=== PATIENT | male | born 1960 | race Two or more races ===

== ENCOUNTER 2020-08-27 22:25 | Emergency (ER) | payer MEDICAID, OTHER ==
[~2020-08-27] VITALS: Ht 170.2 cm; Wt 115.7 kg
[2020-08-27 23:47] VITALS: BP 162/77
== END 2020-08-28 00:18 | disposition home or self-care (01) ==
LOC: ER 22:27
DX: I16.0 Hypertensive urgency (principal); I10 Essential (primary) hypertension; E11.9 Type 2 diabetes mellitus without complications; F17.210 Nicotine dependence, cigarettes, uncomplicated
CPT/HCPCS: 93005

== ENCOUNTER 2020-12-12 21:49 | Inpatient (IN) | payer MEDICAID ==
[~2020-12-12] VITALS: Ht 172.7 cm; Wt 122.8 kg
[2020-12-12 22:47] LABS: Alanine Aminotransferase 31 U/L (16-61); Albumin 3.3 g/dL (3.4-5.0); Anion Gap 6 (5-15); Aspartate Aminotransferase 24 U/L (15-37); Blood Urea Nitrogen 12 mg/dL (7-18); Calcium 8.8 mg/dL (8.5-10.1); Carbon Dioxide 24 mmol/L (21-32); Chloride 110 mmol/L (98-107); GFR African American 98 mL/min; GFR Non-African American 81 mL/min; Glucose 265 mg/dL (74-106); Potassium 3.9 mmol/L (3.5-5.1); Sodium 140 mmol/L (136-145)
[2020-12-12 22:52] LABS: Alkaline Phosphatase 197 U/L (45-117); Bilirubin, Total 0.8 mg/dL (0.2-1.0); Total Protein 7.4 g/dL (6.4-8.2)
[2020-12-12 23:07] LABS: Basophils # (auto) 0 10 ^3/uL (0-0.2); Basophils % (auto) 0.3 % (0.0-2.0); Eosinophils # (auto) 0.1 10 ^3/uL (0-0.8); Eosinophils % (auto) 1.8 % (0.0-7.0); Hematocrit 41.5 % (41.0-53.0); Hemoglobin 15.1 g/dL (13.5-17.5); Lymphocytes # (auto) 2.6 10 ^3/uL (0.4-5.4); Lymphocytes % (auto) 37.2 % (10.0-50.0); Mean Corpuscular Hemoglobin 35.1 pg (28.0-32.0); Mean Corpuscular Hgb Conc. 36.4 g/dL (32.0-36.0); Mean Corpuscular Volume 96.6 fL (80.0-100.0); Monocytes # (auto) 0.7 10 ^3/uL (0-1.3); Monocytes % (auto) 9.7 % (0.0-12.0); Neutrophils # (auto) 3.6 10 ^3/uL (1.6-8.6); Nucleated Red Blood Cells % 0.2 %; Platelet Count (auto) 59 10^3/uL (140-450); Red Cell Distribution Width 13.3 % (11.8-14.3)
[2020-12-13] MEDS ORDERED: HYDROcodone-ACET 5/325MG TAB PO PRN (03:45)
[2020-12-13] MEDS ORDERED: MORPHINE SULF INJ 2 MG/ML SYRINGE 1ML IV PRN ×2 (03:45)
[2020-12-13] MEDS ORDERED: NITROGLYCERIN 0.4 MG SL TAB SL PRN (03:45)
[2020-12-13] MEDS ORDERED: ACETAMINOPHEN 325 MG TAB PO PRN (03:45)
[2020-12-13] MEDS ORDERED: hydrALAZINE HCL 20 MG/ML VL IV PRN (09:45)
[2020-12-13] MEDS: LISINOPRIL 10 MG TAB PO SCH ×2 (10:00→22:29)
[2020-12-13] MEDS ORDERED: cloNIDine HCL 0.1 MG TAB PO PRN (12:00)
[2020-12-13] MEDS ORDERED: ONDANSETRON HCL 4 MG/2 ML VIAL IV PRN (12:00)
[2020-12-13 13:37] LABS: Cholesterol 123 mg/dL (< 200); HDL Cholesterol 38 mg/dL (40-59); LDL Cholesterol 75 mg/dL (< 100); Triglycerides 88 mg/dL (< 150)
[2020-12-13] MEDS: FAMOTIDINE 20 MG TAB PO SCH (22:28)
[2020-12-13] MEDS: HCTZ 25 MG TAB PO SCH (22:28)
[2020-12-13 23:44] VITALS: BP 157/73
[2020-12-14] MEDS ORDERED: NIFE10CA3 PO (00:25)
[2020-12-14] MEDS ORDERED: INSLISPI SC (00:26)
[2020-12-14] MEDS ORDERED: ENAL2.5T7 PO (00:27)
[2020-12-14 05:00] VITALS: BP 134/55
[2020-12-14 08:45] VITALS: BP 148/71
[2020-12-14] MEDS: HCTZ 25 MG TAB PO SCH (08:58)
[2020-12-14] MEDS: FAMOTIDINE 20 MG TAB PO SCH (08:58)
[2020-12-14] MEDS: LISINOPRIL 10 MG TAB PO SCH (08:58)
[2020-12-14] MEDS ORDERED: LISI-716 PO (10:03)
[2020-12-14] MEDS ORDERED: HYDR25TA5 PO (10:03)
[2020-12-14 12:37] VITALS: BP 138/72
[2020-12-14 13:43] VITALS: BP 138/72
== END 2020-12-14 15:00 | disposition home or self-care (01) | DRG 201 ==
LOC: ER 21:50 → TELE 12-13 08:54 → TELE-WESTW 12-13 22:42
PROVIDERS: ADMIT Hospitalist; ATTEND Hospitalist
DX: I49.8 Other specified cardiac arrhythmias (principal); E66.01 Morbid (severe) obesity due to excess calories; I16.0 Hypertensive urgency; Z68.41 Body mass index [BMI] 40.0-44.9, adult; E03.9 Hypothyroidism, unspecified; E11.9 Type 2 diabetes mellitus without complications; Z20.822 Contact with and (suspected) exposure to COVID-19; I10 Essential (primary) hypertension; F17.210 Nicotine dependence, cigarettes, uncomplicated; Z79.899 Other long term (current) drug therapy; Z79.4 Long term (current) use of insulin; Z82.49 Family history of ischemic heart disease and other diseases of the circulatory system; Z83.3 Family history of diabetes mellitus
CPT/HCPCS: 36415; 71045; 80053; 80061; 82962; 83036; 83880; 84439; 84443; 84484; 85025; 85379; 87426; 93005; 93306; 97163; G0378